=== PATIENT | male | born 1995 | race Caucasian/White ===

== ENCOUNTER 2016-12-16 15:13 | Emergency (ER) | payer MEDICAID, OTHER ==
[~2016-12-16] VITALS: Ht 177.8 cm; Wt 72.5 kg
[2016-12-16 15:16] VITALS: Ht 177.8 cm; Wt 72.5 kg
[2016-12-16] MEDS ORDERED: IBUP800T25 PO (15:42)
[2016-12-16] MEDS ORDERED: HYDR-906 PO (15:42)
[2016-12-16] MEDS ORDERED: PEN500 PO (15:43)
--- NOTE | 2016-12-16 15:48 | ERD ---
ER Documentation Chief Complaint Date/Time DATE: 12/16/16 TIME: 15:46 Chief Complaint Complains of dental pain x2 days ago HPI Is a 21-year-old male presents emergency department today complaining of right- sided dental pain for the past 2 days. States he took some medicine that his roommate had he is unsure of the name. Denies any fevers or chills. ROS All systems reviewed and are negative except as per history of present illness. Medications Home Meds Active Scripts Penicillin V Potassium* (Penicillin V K*) 500 Mg Tab, 500 MG PO QID for 7 Days, TAB Prov:AMBER MARTIN PA-C 12/16/16 Ibuprofen* (Motrin*) 800 Mg Tab, 800 MG PO Q6, #30 TAB Prov:AMBER MARTIN PA-C 12/16/16 Hydrocodone/Acetaminophen (Amasa 5-325 Tablet) 1 Each Tablet, 1 TAB PO Q6H Y for PAIN, #10 TAB Prov:AMBER MARTIN PA-C 12/16/16 Allergies Allergies: Coded Allergies: No Known Allergy (Unverified , 12/16/16) Physical Exam Vitals Vital Signs Date Time Temp Pulse Resp B/P Pulse Ox O2 Delivery O2 Flow Rate FiO2 12/16/16 15:16 98.6 99 20 124/64 98 Physical Exam Const: No acute distress Head: Atraumatic Eyes: Normal Conjunctiva ENT: Normal External Ears, Nose and Mouth. Upper right-sided molar with evidence of large cavity. No evidence of abscess Neck: Full range of motion..~ No meningismus. Resp: Clear to auscultation bilaterally Cardio: Regular rate and rhythm, no murmurs Skin: No petechiae or rashes Back: No midline or flank tenderness Ext: No cyanosis, or edema Neur: Awake and alert Psych: Normal Mood and Affect Results 24 hrs Current Medications Medications (Trade) Dose Ordered Sig/Janet Route PRN Reason Start Time Stop Time Status Last Admin Dose Admin Acetaminophen/ Hydrocodone Bitart (Amasa (5/325)) 1 tab ONCE ONCE PO 12/16/16 16:00 12/16/16 16:01 Procedures/MDM Is a 21-year-old male who presents the emergency department today complaining of right-sided dental pain for the past 2 days. On physical exam patient had evidence of a very large cavity in his upper right-sided molar. He is afebrile and otherwise well-appearing. Does not appear to be evidence of abscess. Low suspicion for abscess, cellulitis or deep space tracking infection. Patient symptoms at this time is consistent with dental caries. Patient was given Amasa here in the emergency department. I explained to him that he does need to see a dentist. I explained to him that he will only be given a short course of pain medication for home. Patient was given a list of referral for [facility] dentist. I did also give the patient a prescription for Pen-Vee K to help prevent infection. At this time the patient is stable for discharge and outpatient management. Patient should follow up with their PCP in the next 1-2 days. They may return to the emergency department sooner for any persistent or worsening of symptoms. Patient understood and agreed with the plan. Departure Diagnosis: Primary Impression: Pain, dental Condition: Fair Patient Instructions: Dental Pain Referrals: [facility] ([facility] walk in clinic) Additional Instructions: Call your primary care doctor TOMORROW for an appointment during the next 1-2 days.See the doctor sooner or return here if your condition worsens before your appointment time. Make an appointment at the dentist Take Amasa for severe pain otherwise take Naprosyn or Tylenol or Motrin Take antibiotics as prescribed AMBER MARTIN PA-C Dec 16, 2016 15:48
[2016-12-16] MEDS ORDERED: HYDROCODONE/APAP (5/325) TAB PO ONE (16:00)
== END 2016-12-16 17:10 | disposition home or self-care (01) ==
LOC: FTE 15:13
DX: K08.89 Other specified disorders of teeth and supporting structures (principal)
CPT/HCPCS: Z7502; Z7610; 99284

== ENCOUNTER 2016-12-22 14:30 | Emergency (ER) | payer MEDICAID ==
[~2016-12-22] VITALS: Ht 175.3 cm; Wt 72.5 kg
[~2016-12-22 14:30] MED LIST: HYDR-906 PO; IBUP800T25 PO; PEN500 PO
[2016-12-22 14:35] VITALS: Ht 175.3 cm; Wt 72.5 kg
[2016-12-22] MEDS ORDERED: IBUP800T25 PO (16:17)
[2016-12-22] MEDS ORDERED: ACET500C5 PO (16:18)
--- NOTE | 2016-12-22 16:46 | ERD ---
ER Documentation Chief Complaint Date/Time DATE: 12/22/16 TIME: 16:41 Chief Complaint NEEDS MED REFILL ON PENICILLIN FOR TOOTH INFECTION HPI This is a 21-year-old male presents the emergency department today requesting a medication refill on the ibuprofen. States he is unsure if he is supposed to take more antibiotics. States that he tried to make an appointment at [facility] and was there twice and when he went today he was never properly evaluated and he was injected with local anesthetic "into the wrong tooth". States that they also wanted to do a root canal and routine cleaning. States he has not had his teeth cleaned since he was approximately 12 years old. States that he took the antibiotics he was prescribed previously but he thought it was causing him some shortness of breath recently. Denies any shortness of breath currently. Denies any fevers or chills. ROS All systems reviewed and are negative except as per history of present illness. Medications Home Meds Active Scripts Acetaminophen* (Tylophen*) 500 Mg Capsule, 1 CAP PO Q6H Y for PAIN AND OR ELEVATED TEMP, #30 CAP Prov:AMBER MARTIN PA-C 12/22/16 Ibuprofen* (Motrin*) 800 Mg Tab, 800 MG PO Q6, #30 TAB Prov:AMBER MARTIN PA-C 12/22/16 Penicillin V Potassium* (Penicillin V K*) 500 Mg Tab, 500 MG PO QID for 7 Days, TAB Prov:AMBER MARTINC 12/16/16 Ibuprofen* (Motrin*) 800 Mg Tab, 800 MG PO Q6, #30 TAB Prov:AMBER MARTIN PA-C 12/16/16 Hydrocodone/Acetaminophen (Beverly 5-325 Tablet) 1 Each Tablet, 1 TAB PO Q6H Y for PAIN, #10 TAB Prov:AMBER MARTINC 12/16/16 Allergies Allergies: Coded Allergies: No Known Allergy (Unverified , 12/16/16) PMhx/Soc Hx Alcohol Use: No Hx Substance Use: No Hx Tobacco Use: No Physical Exam Vitals Vital Signs Date Time Temp Pulse Resp B/P Pulse Ox O2 Delivery O2 Flow Rate FiO2 12/22/16 14:35 98.1 110 18 140/90 100 Physical Exam Const: No acute distress Head: Atraumatic Eyes: Normal Conjunctiva ENT: Normal External Ears, Nose and Mouth. Oropharynx with evidence of tooth fracture and decay upper incisor and lower molar. No purulent drainage. No evidence of facial swelling Neck: Full range of motion..~ No meningismus. Resp: Clear to auscultation bilaterally Cardio: Regular rate and rhythm, no murmurs Skin: No petechiae or rashes Neur: Awake and alert Psych: Normal Mood and Affect Procedures/MDM This is a 21-year-old male who presents to the emergency department today for refill on his ibuprofen that he was given for his tooth pain and he is unsure if he requires more antibiotics for his tooth infection. I did actually see this patient on December 16, 2016 and gave the patient a prescription for short course of Beverly, Motrin and Pen-Vee K as prophylactic antibiotic for dental abscess. Patient did attempt to have his tooth extracted today at [facility] and for the patient that was his second visit to have the tooth removed however patient indicated that he felt that they wanted to remove a tooth, his molar that was not causing pain instead of addressing his tooth that is causing pain. I do not feel the patient requires more antibiotics at this time. He is afebrile. Patient was slightly tachycardic however likely due to pain. His oxygen saturations 100%. Low suspicion for anaphylaxis or angioedema. Patient was mostly requesting a refill on ibuprofen. I did explain to the patient that it appears that both teeth do need to be extracted however I do understand the patient's concerns. Patient was given a refill of Motrin and also given a prescription for Tylenol. I did give him referral information again for [facility] dentist. I also explained to the patient that he would receive numbing injections in the posterior aspect of his mouth and jaws that is where the nerve roots are located. Patient then understood. At this time the patient is stable for discharge and outpatient management. Patient should follow up with their PCP in the next 1-2 days. They may return to the emergency department sooner for any persistent or worsening of symptoms. Patient understood and agreed with the plan. Departure Diagnosis: Primary Impression: Encounter for medication refill Additional Impression: Pain, dental Condition: Fair Patient Instructions: Taking Medicine Safely, Dental Pain Referrals: [facility] ([facility] walk in clinic) Additional Instructions: Call your primary care doctor TOMORROW for an appointment during the next 1-2 days.See the doctor sooner or return here if your condition worsens before your appointment time. Make an appointment at the dentist Take Tylenol or Motrin for pain AMBER MARTIN PA-C Dec 22, 2016 16:46
== END 2016-12-22 16:48 | disposition home or self-care (01) ==
LOC: FTE 14:30
DX: K08.89 Other specified disorders of teeth and supporting structures (principal)
CPT/HCPCS: 99281